=== PATIENT | female | born 1990 | race Caucasian/White ===

== ENCOUNTER 2017-05-30 22:12 | Emergency (ER) | payer BC, OTHER ==
[~2017-05-30] VITALS: Ht 165.1 cm; Wt 70.0 kg
[2017-05-30 22:22] VITALS: Ht 165.1 cm; Wt 70.0 kg
--- NOTE | 2017-05-30 23:21 | ERD ---
ER Documentation Chief Complaint Date/Time DATE: 05/30/17 Chief Complaint Neck and head pain after having neck manipulation by chiropractor. HPI The patient is a 26-year-old female who presents the emergency department with complaint of neck pain, head pain and visual changes. The patient reports that approximately 1 week ago she was seen by a chiropractor for neck manipulation secondary to neck and upper back pain. Following the manipulation she noted development of "burning hot spots" to 3 areas of her head, including the right periorbital region, right parietal head, and right occipital head. Additionally , she has been experiencing intermittent paresthesias to the face and right upper extremity. She notes that the discomfort to these areas have has remained constant until today. Approximately 1.5 hours ago she developed visual changes, including spots in her vision, increase paresthesias to the right upper extremity, and increased pain and pulsating sensation to the right neck. Given worsening of her symptoms, she decided to present to the emergency department for further evaluation. Denies any numbness or weakness of the distal extremities. Denies difficulty with ambulation or speech. Denies any bowel or bladder disturbances, urinary retention or lower extremity weakness, numbness or paresthesias. Denies fevers, sweats, chills, nausea or vomiting. Denies chest pain, palpitations or shortness of breath. Denies any other complaints at this time. Denies history of IV drug use. Denies any recent head injury or head trauma. ROS All systems reviewed and are negative except as per history of present illness. Allergies Allergies: Coded Allergies: No Known Allergy (Unverified , 05/30/17) PMhx/Soc Medical and Surgical Hx: pt denies Medical Hx, pt denies Surgical Hx Physical Exam Vitals Vital Signs Date Time Temp Pulse Resp B/P Pulse Ox O2 Delivery O2 Flow Rate FiO2 05/30/17 22:22 98.1 82 18 138/85 96 Physical Exam GENERAL: Well-developed, well-nourished, female, in no acute distress HEENT: Head is normocephalic, atraumatic. No hematomas. No step-offs. No scleral pallor or icterus. Pupils equal, round and reactive to light. Extraocular movements intact. Conjunctiva pink. OS 20/20. OD 20/20. OU 20/20. Vision grossly intact. NECK: Supple. No masses, no tenderness, no lymphadenopathy. Trachea midline. No nuchal rigidity. No meningismus. Negative Spurling maneuver. RESPIRATORY: Lungs are clear to auscultation bilaterally. Equal breath sounds. Normal expiratory effort. CARDIOVASCULAR: Regular rate and rhythm. S1 and S2 normal. Distal pulses are palpable, 2+ bilaterally. Capillary refill is less than 2 seconds. BACK: No midline tenderness. EXTREMITIES: No clubbing, cyanosis, or edema. Normal skin perfusion. Full range of motion of both the upper and lower extremities bilaterally. Muscle tone is normal. No focal swelling or erythema. NEUROLOGIC: The patient is alert, awake, and oriented x 3. No focal neurologic deficits. Cranial nerves II-XII intact. Gait is observed and normal. There is no ataxia. Motor normal in all extremities. Sensation grossly intact. INTEGUMENT: Skin is intact. Warm and dry. No rashes, no petechiae present. Normal turgor. PSYCHIATRIC: Normal mood and mentation. Results 24 hrs Current Medications Medications (Trade) Dose Ordered Sig/Silvano Route PRN Reason Start Time Stop Time Status Last Admin Dose Admin Lidocaine (Lmx 4% Plus) 1 applic ONCE ONCE TOP 05/30/17 23:30 05/30/17 23:30 DC Lorazepam (Ativan) 1 mg ONCE ONCE PO 05/30/17 23:30 05/30/17 23:30 DC Procedures/MDM This is a 26-year-old female presenting to the Emergency Department with a "pulsating" neck discomfort, paresthesias to the right upper extremity, " burning hot spots" to three regions of the head and visual changes one week s/p neck manipulation by chiropractor. Differential diagnosis includes, but is not limited to, cervical radiculopathy, cervical artery dissection, hematoma, severe vascular injury, fracture, dislocation, subluxation, cord compression, disk herniation, cauda equina syndrome, vertebrobasilar accident, thrombus. The patient was evaluated bedside. Her case was discussed with Dr. Castillo, who recommends visual acuity and MRI w/wo contrast of the neck. Visual acuity was performed, which revealed OS 20/20, OD 20/20, OU 20/20. MRI with and without contrast of the neck was ordered, and questionnaire filled out. However, patient decided against imaging and further evaluation, noting a severe phobia of needles and decided to leave against medical advice. Patient was offered EMLA /LMX cream, Ativan, among other options to alleviate her fear, but she refused. The patient had no altered level of consciousness and no signs of intoxication. The patient's judgment capabilities were intact. The patient understands their current condition and treatment and was able to communicate their choices clearly. The patient was heavily counseled that by leaving AMA and refusing further evaluation and treatment, they are putting themselves at risk for permanent disability, sepsis, vascular injury, , among other terrible complications. The importance of staying in this medical facility for further management was explained at length. The patient was told that by leaving she is presenting herself with serious and immediate health risks that may ultimately result in health disabilities and . Despite my many efforts to convince the patient to stay, the patient still decided to leave against medical advice. She was instructed to return to the Emergency Department as soon as possible for further evaluation and management. Again, signs of deteriorating or progressing condition were discussed with the patient at length, and the patient was given strict return precautions for returning to seek medical advice. They were advised that they may return at any time for additional treatment. The patient has the medical decision making capacity and understands the potential consequences of leaving AMA. I answered all the patient's questions and offered them care at any time if they choose to return. I have also recommended that they follow up with their primary care provider within 24 hours for further evaluation and care. Departure Diagnosis: Primary Impression: Neck pain Condition: Fair Patient Instructions: Know Your Neck: The Cervical Spine, Neck Pain, No Trauma Additional Instructions: Follow up with your primary medical provider TOMORROW/ SOON POSSIBLE for further evaluation and management. You are leaving against medical advice, and did not want the MRI. Therefore, at this time, we cannot rule out vascular injury. Please return immediately to the Emergency Department for any new or worsening symptoms. We will be happy to see/treat you at any time! CARLOZ DOBBS PA-C May 30, 2017 23:21
[2017-05-30] MEDS ORDERED: LIDOCAINE 4% CR TOP ONE (23:30)
[2017-05-30] MEDS ORDERED: LORAZEPAM 1 MG TAB PO ONE (23:30)
== END 2017-05-30 23:35 | disposition left against medical advice (07) ==
LOC: FTE 22:12
DX: M54.2 Cervicalgia (principal)
CPT/HCPCS: 99282